=== PATIENT | male | born 1990 | race Caucasian/White ===

== ENCOUNTER 2016-07-13 17:13 | Emergency (ER) | payer OTHER ==
--- NOTE | 2016-07-13 17:40 | UC ---
Abdominal Pain Male HPI - HPI Summary HPI Summary: The patient comes in today for: 1. Abdominal pain: Onset: 17 hours ago. Palliative/provocative: Laughing, coughing, makes it worse. Quality: Sharp towards the navel, but ache like elsewhere. Region: Periumbilical. Severity: 7/10 Time: Constant, but intensity comes and goes. Associated symptoms: Vomiting: None. Diarrhea: None. Temperatures: None taken at home, but he was shivering. Previous treatment: He took an Melani[place]Read[place] and a laxative. He took and enema also. None of these helped. * - History of Current Complaint Chief Complaint: UCAbdominalPain Stated Complaint: ABD PAIN Time Seen by Provider: 07/13/16 17:18 Hx Obtained From: Patient, Family/Program Development Specialist - Allergies/Home Medications Allergies/Adverse Reactions: Allergies Allergy/AdvReac Type Severity Reaction Status Date / Time No Known Allergies Allergy Verified 07/13/16 17:27 Home Medications: Home Medications Bisacodyl [Dulcolax] 5 mg PO DAILY PRN 07/13/16 [History Confirmed 07/13/16] Sodium Phosphate ADULT ENEMA* [Fleet Enema*] 1 dose NE DAILY PRN 07/13/16 [ History Confirmed 07/13/16] PMH/Surg Hx/FS Hx/Imm Hx Previously Healthy: Yes Endocrine History Of: Denies: Diabetes, Thyroid Disease, Hyperthyroidism, Hypothyroidism, Dyslipidemia Cardiovascular History Of: Denies: Cardiac Disorders, Hypertension, Pacemaker/ICD, Myocardial Infarction , Congestive Heart Failure, Atrial Fibrillation, Deep Vein Thrombosis, Bleeding Disorders Respiratory History Of: Denies: COPD, Asthma, Bronchitis, Pneumonia, Pulmonary Embolism GI/ History Of: Denies: Gastroesophageal Reflux, Ulcer, Gastrointestinal Bleed, Gall Bladder Disease, Kidney Stones, Diverticulitis, Renal Disease, Urosepsis Neurological History Of: Denies: TIA, CVA, Dementia, Seizures, Migraine Psychological History Of: Denies: Anxiety, Depression, Bipolar Disorder, Schizophrenia, Post Traumatic Stress Disorder Cancer History Of: Denies: Lung Cancer, Colorectal Cancer, Breast Cancer, Prostate Cancer, Cervical Cancer Other History Of: Negative For: HIV, Hepatitis B, Hepatitis C, Anticoagulant Therapy - Surgical History Surgical History: None - Family History Known Family History: Positive: Hypertension Negative: Cardiac Disease - Social History Occupation: Employed Full-time Alcohol Use: Occasionally Substance Use Type: None Smoking Status (MU): Never Smoked Tobacco Review of Systems Constitutional: Fever Skin: Negative Eyes: Negative ENT: Negative Respiratory: Negative Cardiovascular: Negative Gastrointestinal: Abdominal Pain Genitourinary: Negative All Other Systems Reviewed And Are Negative: Yes Physical Exam Triage Information Reviewed: Yes Appearance: Well-Appearing, No Pain Distress - He is smiling during the interview, but will complain and grimace during the exam., Well-Nourished Vital Signs: Initial Vital Signs Temp 101.3 F 07/13/16 17:23 Pulse 109 07/13/16 17:23 Resp 18 07/13/16 17:23 BP 144/81 07/13/16 17:23 Pulse Ox 97 07/13/16 17:23 Vital Signs Reviewed: Yes Eyes: Positive: Conjunctiva Clear. Negative: Discharge ENT: Positive: Hearing grossly normal. Negative: Pharyngeal erythema, Nasal congestion, Nasal drainage, TM bulging, TM dull, TM red, Tonsillar swelling, Tonsillar exudate Neck: Positive: Supple, Nontender, No Lymphadenopathy. Negative: Nuchal Rigidity Respiratory: Positive: Chest non-tender, Lungs clear, No respiratory distress, No accessory muscle use. Negative: Crackles, Wheezing Cardiovascular: Positive: RRR, No Murmur Abdomen Description: Positive: No Organomegaly, Guarding - Guarding vs muscular young male?, Peritoneal Signs - There was rebound and percussion tenderness.. Negative: Nontender, Bruit, Distended Bowel Sounds: Positive: Present Musculoskeletal: Positive: Strength Intact, ROM Intact, No Edema Neurological: Positive: Alert, Muscle Tone Normal Psychological: Positive: Normal Response To Family, Age Appropriate Behavior. Negative: Consolable Skin: Negative: rashes, breakdown Abd Pain Male Course/Dx - Course Course Of Treatment: Patient was told that I thought he may have appendicitis. He was told to go to [facility] ER. He and his female rust proofer agreed, but wanted to go by private car. - Differential Dx/Clinical Impression Differential Diagnosis/HQI/PQRI: Appendicitis, Constipation Provider Diagnoses: Abdominal pain. Appendicitis - Physician Notification/Consults Discussed Patient Care With: Shayy Paul. Time Discussed With Above Provider: 18:02 Discharge - Discharge Plan Condition: Stable Disposition: AGAINST MEDICAL ADVICE Additional Instructions: The patient was to go directly to the ER at [facility] via private car.
[2016-07-13 18:06] VITALS: BP 141/83
== END 2016-07-13 17:59 | disposition left against medical advice (07) ==
LOC: UCEAST 17:13
DX: K37 Unspecified appendicitis (principal)
CPT/HCPCS: 99202; G0463

== ENCOUNTER 2016-07-13 18:21 | Observation (INO) | payer OTHER ==
[2016-07-13] MEDS ORDERED: Ketorolac INJ* 30 MG/ML 1 ML VIAL IV PUSH ONE (18:43)
--- NOTE | 2016-07-13 19:14 | ED ---
Abdominal Pain/Male - HPI Summary HPI Summary: 26M presents with RLQ pain since 12am. States the pain started in epigastric area and has since traveled to [facility]. Was seen in and transferred her for appendicitis work up. Admits to anorexia and fever. Denies any n/v/d. Last meal at 12pm. Has had pain before a couple months ago that last for an hour. Denies any hematuria, dysuria, or flank pain. - History of Current Complaint Chief Complaint: EDAbdPain Stated Complaint: ABD PAIN/CONV CARE Time Seen by Provider: 07/13/16 18:34 - Allergies/Home Medications Allergies/Adverse Reactions: Allergies Allergy/AdvReac Type Severity Reaction Status Date / Time No Known Allergies Allergy Verified 07/13/16 18:25 PMH/Surg Hx/FS Hx/Imm Hx Endocrine/Hematology History: Denies: Hx Anticoagulant Therapy, Hx Diabetes, Hx Thyroid Disease Cardiovascular History: Denies: Hx Congestive Heart Failure, Hx Deep Vein Thrombosis, Hx Hypertension , Hx Myocardial Infarction, Hx Pacemaker/ICD Respiratory History: Denies: Hx Asthma, Hx Chronic Obstructive Pulmonary Disease (COPD), Hx Lung Cancer, Hx Pneumonia, Hx Pulmonary Embolism GI History: Denies: Hx Gall Bladder Disease, Hx Gastrointestinal Bleed, Hx Ulcer, Hx Urosepsis History: Denies: Hx Kidney Stones, Hx Renal Disease Neurological History: Denies: Hx Dementia, Hx Migraine, Hx Seizures, Hx Transient Ischemic Attacks (TIA) Psychiatric History: Denies: Hx Anxiety, Hx Depression, Hx Schizophrenia, Hx Bipolar Disorder Infectious Disease History: No Infectious Disease History: Denies: Hx Clostridium Difficile, Hx Hepatitis, Hx Human Immunodeficiency Virus (HIV), Hx of Known/Suspected MRSA, Hx Shingles, Hx Tuberculosis, Traveled Outside the [place] in Last 30 Days - Family History Known Family History: Positive: Hypertension Negative: Cardiac Disease - Social History Alcohol Use: Occasionally Substance Use Type: Reports: None Smoking Status (MU): Never Smoked Tobacco Review of Systems Negative: Fever Negative: Chest Pain Negative: Shortness Of Breath Positive: Abdominal Pain - RLQ. Negative: Vomiting, Diarrhea, Nausea All Other Systems Reviewed And Are Negative: Yes Physical Exam Triage Information Reviewed: Yes Vital Signs On Initial Exam: Initial Vitals Temp Pulse Resp BP Pulse Ox 100.6 F 100 18 153/62 99 07/13/16 18:25 07/13/16 18:25 07/13/16 18:25 07/13/16 18:25 07/13/16 18:25 Vital Signs Reviewed: Yes Appearance: Positive: Well-Appearing Skin: Positive: Warm, Dry Head/Face: Positive: Normal Head/Face Inspection Eyes: Positive: Normal, Conjunctiva Clear ENT: Positive: Normal ENT inspection, Pharynx normal, TMs normal Respiratory/Lung Sounds: Positive: Clear to Auscultation, Breath Sounds Present Cardiovascular: Positive: Normal, RRR Abdomen Description: Positive: Soft, Other: - moderate RLQ tenderness, no rebound, pos rovsings Bowel Sounds: Positive: Present Diagnostics - Vital Signs Vital Signs Temp Pulse Resp BP Pulse Ox 07/13/16 18:25 100.6 F 100 18 153/62 99 - Laboratory Result Diagrams: 07/13/16 19:15 07/13/16 19:15 Lab Statement: Any lab studies that have been ordered have been reviewed, and results considered in the medical decision making process. - CT ab CT Interpretation: Positive (See Comments) - IMPRESSION: Tubular fluid-filled structure in the right lower quadrant consistent with mildly dilated appendix and acute appendicitis. No periappendiceal abscess is noted. CT Interpretation Completed By: Radiologist Abdominal Pain Fem Course/Dx - Course Course Of Treatment: 26M presents with RLQ starting today. was epigastric and moved to [facility]. admits to anorexia. denies any n/v/d. tenderness in RLQ on exam without rebound. elevated WBC and crp. also has temp of 100.2. CT appenditis. dr og will see in ED to take to surgery. - Diagnoses Differential Diagnosis/HQI/PQRI: Appendicitis, Urinary Tract Infection, Other - gastroenteritis Provider Diagnoses: Acute appendicitis Discharge - Discharge Plan Condition: Guarded Disposition: ADMITTED TO [facility]
[2016-07-13 19:27] LABS: Hematocrit 46 % (42-52); Hemoglobin 15.8 g/dl (14.0-18.0); Mean Corpuscular HGB Conc 35 g/dl (31-36); Mean Corpuscular Hemoglobin 31 pg (27-31); Mean Corpuscular Volume 89 fL (80-94); Mean Platelet Volume 7 um3 (7.4-10.4); Red Blood Count 5.17 10^6/ul (4.0-5.4); Red Cell Distribution Width 12 % (10.5-15); White Blood Count 15.2 10^3/ul (3.5-10.8)
[2016-07-13] MEDS: NS 0.9% 1000 ML* 2,000 ML IV ONE ×2 (19:27→22:05)
[2016-07-13 19:41] LABS: Urine Bacteria Absent (Absent); Urine Bilirubin Negative (Negative); Urine Glucose Negative (Negative); Urine Nitrite Negative (Negative)
[2016-07-13 19:42] LABS: Albumin 4.7 g/dL (3.2-5.2); BUN/Creatinine Ratio 11.9 (8-20); Calcium 9.8 mg/dL (8.6-10.3); EGFR African American 81.5 (>60); EGFR Non-African American 63.4 (>60); Globulin 2.9 g/dL (2-4); Potassium 3.8 mmol/L (3.5-5.0); Total Bilirubin 1.6 mg/dL (0.2-1.0); Total Protein 7.6 g/dL (6.4-8.9)
[2016-07-13] MEDS ORDERED: Iohexol 300* (CONTRAST) 10 ML SDV IV ONE (19:50)
--- NOTE | 2016-07-13 21:14 | RAD ---
Indication: Right lower quadrant pain. Contrast: Administered 102.9 ml of OMNIPAQUE 300 mgi/ml CT of the abdomen and pelvis was performed after oral and IV contrast demonstration. Coronal and sagittal reconstructed images were obtained. The lung bases demonstrate no pleural fluid, nodules or masses. Heart is of normal size without evidence of pericardial effusion. Liver is normal in size. No focal lesions or intrahepatic ductal dilatation is noted. Gallbladder demonstrates no calcified gallstones. No pericholecystic fluid or wall thickening is identified. The spleen is normal in size. The common duct is not dilated. Pancreas demonstrates no mass or pancreatic duct dilatation. No adrenal masses are noted. The kidneys demonstrate symmetric nephrograms without focal lesions. No retroperitoneal lymphadenopathy is noted. CT of the pelvis demonstrates contrast in the right colon. A tubular fluid-filled structure is noted in the right lower quadrant measuring up to 8 mm. And is fluid-filled. Findings are suspicious for acute appendicitis. There is fecal stasis noted. The urinary bladder is unremarkable. No hernias are identified. IMPRESSION: Tubular fluid-filled structure in the right lower quadrant consistent with mildly dilated appendix and acute appendicitis. No periappendiceal abscess is noted. EMERALD Sykes was notified of the results at time of the examination.
[2016-07-13] MEDS ORDERED: Bupivacaine 0.25% EPI 200,000* 30 ML SDV ONE (22:13)
[2016-07-13] MEDS ORDERED: metroNIDAZOLE IV 500 MG/100ML* 500 MG/100 ML BAG IVPB ONE (22:13)
[2016-07-13] MEDS ORDERED: ceFAZolin 2 GM PREMIX (*) 2 GM/50 ML BAG IVPB ONE (22:13)
[2016-07-13] MEDS ORDERED: Ondansetron INJ* 2 MG/ML VIAL ONE (22:27)
[2016-07-13] MEDS ORDERED: Ketorolac INJ* 30 MG/ML 1 ML VIAL ONE (22:27)
[2016-07-13] MEDS ORDERED: Succinylcholine* 20 MG/ML 10 ML VIAL ONE (22:27)
[2016-07-13] MEDS ORDERED: Midazolam* 1 MG/ML 2 ML VIAL (2 MG) ONE ×2 (22:27→23:13)
[2016-07-13] MEDS ORDERED: Propofol* 10 MG/ML 20 ML BTL IV PUSH ONE (22:27)
[2016-07-13] MEDS ORDERED: Lidocaine 2% PF * 5 ML VIAL ONE (22:27)
[2016-07-13] MEDS ORDERED: fentaNYL* 50 MCG/ML 2 ML VIAL (100 MCG VIAL) ONE ×2 (22:27)
[2016-07-13] MEDS ORDERED: HYDROmorphone INJ* 1 MG/ML CARPUJECT SYRINGE ONE ×2 (22:28→23:25)
[2016-07-14] MEDS ORDERED: Acetaminophen TAB* 325 MG PO PRN (00:14)
[2016-07-14] MEDS ORDERED: HYDROmorphone INJ* 1 MG/ML CARPUJECT SYRINGE IV PRN ×2 (00:14→00:16)
[2016-07-14] MEDS ORDERED: Ondansetron INJ* 2 MG/ML VIAL IV PRN ×2 (00:14→00:16)
[2016-07-14] MEDS ORDERED: PROCHLORPERAZINE INJ 5 MG/ML 2 ML VIAL IV PRN (00:16)
[2016-07-14] MEDS ORDERED: fentaNYL* 50 MCG/ML 2 ML VIAL (100 MCG VIAL) IV PRN (00:16)
[2016-07-14] MEDS ORDERED: DiMENhydriNATE IV* 50 MG/ML VIAL IV PUSH PRN (00:16)
[2016-07-14] MEDS ORDERED: Scopolamine 1.5 mg* PATCH TRANSDERM PRN (00:16)
[2016-07-14] MEDS ORDERED: HYDROmorphone INJ* 1 MG/ML CARPUJECT SYRINGE ONE (01:04)
[2016-07-14] MEDS ORDERED: fentaNYL* 50 MCG/ML 2 ML VIAL (100 MCG VIAL) ONE (01:11)
--- NOTE | 2016-07-14 02:29 | HP ---
HISTORY AND PHYSICAL: DATE OF ADMISSION: 07/13/16 LOCATION: The patient was seen in the emergency room. HISTORY OF PRESENT ILLNESS: Mr. Duron is a 26-year-old gentleman who presents to [facility] Emergency Room with complaints of almost 1-day history of abdominal pain. The patient's pain started around midnight last night and was mostly in the epigastrium. It was accompanied with decreased appetite. He thought he was constipated. He tried an enema in the morning with minimal results. He went off and did his regular activities, but then continued to worsen. He had chills in the midday, but denied any fevers. No nausea, no vomiting. He had a normal bowel movement earlier today. The patient describes somewhat of a similar episode about 3 months ago when he was on a flight, it resolved soon thereafter. Pain is worse with movement, it is relieved with narcotics. PAST MEDICAL HISTORY: None. PAST SURGICAL HISTORY: [place] tooth removal. MEDICATIONS: None. ALLERGIES: No known drug allergies. FAMILY HISTORY: Appendicitis, but no family history of ulcerative colitis or Crohn's disease. SOCIAL HISTORY: He does not smoke. 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 , without children. REVIEW OF SYSTEMS: No fevers, no shortness of breath, no chest pain, no cardiovascular disease, no cerebrovascular disease, no headaches, no change in bowel habits, no recent weight loss or weight gain. Abdominal complaints as described. No bleeding or clotting disorders. Good exercise tolerance. PHYSICAL EXAMINATION GENERAL: He is alert and oriented x3. He is in no apparent distress. VITAL SIGNS: Temperature 100.7, blood pressure 131/69, pulse 88. HEENT: Normocephalic, atraumatic. Sclerae anicteric. Mucous membranes are moist. NECK: No lymphadenopathy. LUNGS: Clear to auscultation bilaterally. ABDOMEN: Soft and nondistended. Tenderness in the right lower quadrant with mild tenderness to percussion with no rebound. No hernias or masses noted. No CVA tenderness. EXTREMITIES: No cyanosis, clubbing, or edema. RECTAL: Not performed. DIAGNOSTIC STUDIES/LAB DATA: Reviewed, show a white count of 15.2 with left shift. Chemistry panel shows elevated bilirubin and an elevated creatinine of 1.35. Urinalysis shows ketones and blood. The patient underwent a CAT scan of the abdomen and pelvis. The images as well as the report were reviewed, consistent with an acute appendicitis, no evidence of hydronephrosis and no free air or free fluid. IMPRESSION: Acute appendicitis. I have recommended laparoscopic appendectomy going over the risks, benefits, and alternatives with Mr. Duron and his and he agrees to proceed. We spoke of the possible complications, which include not limited to bleeding, infection, need for open procedure, need for additional procedures, abscess formation, and injury to adjacent organs. The patient signed consent and we will take him to the operating room. We will give him IV hydration and preoperative antibiotics. I understand the plan and postoperative care as well. [id number] #: [id number] MTDD
--- NOTE | 2016-07-14 06:32 | OP ---
DATE OF OPERATION: 07/13/16 - ROOM #332 DATE OF : 88 SURGEON: Garfield Leon MD TAPE MAKER: None. ANESTHESIOLOGIST: Dr. Titus. ANESTHESIA: General anesthesia. PRE-OP DIAGNOSIS: Acute appendicitis. POST-OP DIAGNOSIS: Acute appendicitis. OPERATIVE PROCEDURE: Laparoscopic appendectomy. ESTIMATED BLOOD LOSS: Minimal. FLUIDS: Minimal crystalloid fluid given. SPECIMENS: Appendix. DRAINS: None. DESCRIPTION OF THE PROCEDURE: The patient was identified in the preoperative area, marked, brought to the OR, placed on the operating table in a supine position. Preoperative antibiotics were given. Sequential devices were placed on bilateral lower extremities. General anesthesia was induced. Agarwal catheter was inserted. There was no urine output and then removed. The patient' s abdominal area was clipped and the abdomen was prepped and draped in a standard surgical fashion. A time-out was performed. Folds of the umbilicus were elevated anteriorly and a Veress needle was inserted into the abdominal cavity, which was then allowed to insufflate to a pressure of 15 mmHg. The patient tolerated the insufflation well. The Veress needle was then removed, and a 5-mm trocar was inserted at the umbilical site. Laparoscope was inserted through this and there was no evidence of injury from the trocar insertion from the Veress needle. Omentum was plastered to the anterior abdominal wall. This was bluntly removed and additional trocars were placed in the following position; a 5 mm in the suprapubic area and a 5 mm in the left lower quadrant. Table was repositioned, adnexa was identified. The tip of it showed some exudative tissue, but it was nonperforated. This was lifted and retracted superiorly and medially, and electrocautery was used to free this up from the lateral abdominal wall. A window was made at the base of the appendix and the mesoappendix was taken with 35 mm campos ELIGIO stapling device. Appendix itself was then taken with 35 mm kunz ELIGIO stapling device through the base of the appendix with healthy tissue. Appendix was then placed in endoscopic retrieval bag and brought out through the umbilical port site. This port was then replaced and review of the staple line showed some oozing at the mesoappendix. A 10 mm clip oil seal assembler was utilized at this site. Hemostasis was then achieved. Review of the abdomen showed no free fluid and then the umbilical trocar was removed. The umbilical site was then reapproximated with a fascial layer with 0 Polysorb suture using an EndoClose device. The 5 mm trocar in the left lower quadrant was removed and showed some oozing. This was not significant but persisted and for this reason, an EndoClose device was utilized to gain hemostasis at this site too with an 0 Polysorb suture. Next, the abdomen was then allowed to collapse. The suprapubic port was then removed, and all three skin incisions were reapproximated with 4-0 Monocryl followed by Steri-Strips and sterile dressing. The patient tolerated the procedure well, and was woken up in the OR and transferred back in stable condition. [id number]/[facility] #: [id number] JOSE
[2016-07-14] MEDS: oxyCODONE/Acetamin 5/325 MG* TAB PO PRN ×2 (08:11→12:57)
[2016-07-14 11:28] VITALS: BP 106/59
[2016-07-17] MEDS ORDERED: Scopolamine PATCH Remove* 1 NOTE MISC PATCH OFF ONE (00:16)
--- NOTE | 2016-08-08 13:58 | DS ---
Amended report to enter date of admission. DISCHARGE SUMMARY: DATE OF ADMISSION: 07/14/16 DATE OF DISCHARGE: 07/14/16 HISTORY AND HOSPITAL COURSE: Mr. Duron was admitted with acute appendicitis, went to the operating room, underwent laparoscopic appendectomy. Please see both history and physical as well as operative report for details, and the patient was discharged after the surgery for planned followup in our offices. [id number]/[facility] #: [id number] MTDD
== END 2016-07-14 13:20 | disposition home or self-care (01) ==
LOC: ED 18:21 → OR 22:19 → SSU 07-14 00:14
PROVIDERS: ADMIT Surgery; ATTEND Surgery
PROC: 0DTJ4ZZ Resection of Appendix, Percutaneous Endoscopic Approach (ICD-10-PCS; principal; 2016-07-14)
DX: K35.80 Unspecified acute appendicitis (principal)
CPT/HCPCS: 36415; 74177; 80053; 81003; 81015; 83690; 85025; 86141; 88304; 96374; 96375; 99282; A9270-GY; C1776; G0378; J0330; J0690; J1170; J1885; J2250; J2405; J2704; J3010; J3490; Q9967

== ENCOUNTER 2016-11-12 09:02 | Emergency (ER) | payer OTHER ==
[2016-11-12 09:07] VITALS: BP 133/75
--- NOTE | 2016-11-12 09:11 | UC ---
HPI Febrile Illness - HPI Summary HPI Summary: 26 year old fever, chills and muscle aches. - History of Current Complaint Chief Complaint: UCGeneralIllness Time Seen by Provider: 11/12/16 09:10 - Allergy/Home Medications Allergies/Adverse Reactions: Allergies Allergy/AdvReac Type Severity Reaction Status Date / Time No Known Allergies Allergy Verified 11/12/16 09:07 Home Medications: Home Medications NK [No Home Medications Reported] 11/12/16 [History Confirmed 11/12/16] PMH/Surg Hx/FS Hx/Imm Hx Endocrine/Hematology History: Denies: Hx Anticoagulant Therapy, Hx Diabetes, Hx Thyroid Disease Cardiovascular History: Denies: Hx Congestive Heart Failure, Hx Deep Vein Thrombosis, Hx Hypertension , Hx Myocardial Infarction, Hx Pacemaker/ICD Respiratory History: Denies: Hx Asthma, Hx Chronic Obstructive Pulmonary Disease (COPD), Hx Lung Cancer, Hx Pneumonia, Hx Pulmonary Embolism GI History: Denies: Hx Gall Bladder Disease, Hx Gastrointestinal Bleed, Hx Ulcer, Hx Urosepsis History: Denies: Hx Kidney Stones, Hx Renal Disease Neurological History: Denies: Hx Dementia, Hx Migraine, Hx Seizures, Hx Transient Ischemic Attacks (TIA) Psychiatric History: Denies: Hx Anxiety, Hx Depression, Hx Schizophrenia, Hx Bipolar Disorder - Surgical History Surgery Procedure, Year, and Place: [place] june 2016 Infectious Disease History: No Infectious Disease History: Denies: Hx Clostridium Difficile, Hx Hepatitis, Hx Human Immunodeficiency Virus (HIV), Hx of Known/Suspected MRSA, Hx Shingles, Hx Tuberculosis, Traveled Outside the [place] in Last 30 Days - Family History Known Family History: Positive: Hypertension Negative: Cardiac Disease - Social History Alcohol Use: Rare Substance Use Type: Reports: None Smoking Status (MU): Never Smoked Tobacco Review of Systems Constitutional: Fever, Chills, Fatigue Skin: Negative Eyes: Negative ENT: Negative Respiratory: Negative Cardiovascular: Negative Gastrointestinal: Negative Genitourinary: Negative Motor: Negative Neurovascular: Negative Musculoskeletal: Negative Neurological: Negative Psychological: Negative All Other Systems Reviewed And Are Negative: Yes Physical Exam Triage Information Reviewed: Yes Appearance: Ill-Appearing Vital Signs: Initial Vital Signs Temp 37.2 C 11/12/16 09:03 Pulse 117 11/12/16 09:03 Resp 20 11/12/16 09:03 BP 133/75 11/12/16 09:03 Pulse Ox 97 11/12/16 09:03 Eye Exam: Normal ENT Exam: Normal Dental Exam: Normal Neck exam: Normal Neck: Positive: 1 Respiratory Exam: Normal Cardiovascular Exam: Normal Abdominal Exam: Normal Musculoskeletal Exam: Normal Neurological Exam: Normal Psychological Exam: Normal Skin Exam: Normal Course/Dx - Diagnoses Clinic Provider Diagnoses: fever. chills. body aches Discharge - Discharge Plan Condition: Stable Disposition: HOME Patient Education Materials: Fever in Adults (ED) Referrals: No Primary Care Phys,NOPCP [Primary Care Provider] -
[2016-11-12 12:25] LABS: EBV Response YES
[2016-11-12 12:32] LABS: Hematocrit 50 % (42-52); Hemoglobin 17.4 g/dl (14.0-18.0); Mean Corpuscular HGB Conc 35 g/dl (31-36); Mean Corpuscular Hemoglobin 32 pg (27-31); Mean Corpuscular Volume 91 fL (80-94); Mean Platelet Volume 8 um3 (7.4-10.4); Red Cell Distribution Width 12 % (10.5-15); White Blood Count 4.4 10^3/ul (3.5-10.8)
[2016-11-12 14:07] LABS: Mono Internal Control QC Line Present
[2016-11-13 14:24] LABS: EBV Capsid Ag IgG Ab Positive (Negative); EBV Capsid Ag IgM Ab Positive (Negative)
--- NOTE | 2016-11-13 18:28 | UC ---
Progress - Progress Note Progress Note: Pt with + IgG and IgM EBV - Please call pt and let them know sx likely acute mononucleous f/u with pcp hydrate motrin/apap avoid abd trauma, contact sports RN aware
== END 2016-11-12 09:57 | disposition home or self-care (01) ==
LOC: UCEAST 09:02
DX: D80.6 Antibody deficiency with near-normal immunoglobulins or with hyperimmunoglobulinemia (principal); R79.89 Other specified abnormal findings of blood chemistry
CPT/HCPCS: 36415; 85025; 86308; 86664; 86665; 87502; 87651; 99211; G0463